=== PATIENT | female | born 2000 | race Caucasian/White ===

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

== ENCOUNTER 2023-05-14 09:46 | Emergency (ER) | payer MEDICAID ==
[~2023-05-14] VITALS: Ht 165.1 cm; Wt 81.6 kg
[2023-05-14] MEDS ORDERED: IBUP-1955 PO (11:32)
[2023-05-14 11:45] VITALS: BP 120/71; TEMP 98.2; O2SAT 100
[2023-05-14] MEDS ORDERED: KETOROLAC TROMETHAMINE INJ 30 MG/ML VIAL IM ONE (12:00)
== END 2023-05-14 11:45 | disposition home or self-care (01) ==
LOC: ER 09:46
DX: S83.91XA Sprain of unspecified site of right knee, initial encounter (principal); Z88.8 Allergy status to other drugs, medicaments and biological substances; Z91.018 Allergy to other foods; X58.XXXA Exposure to other specified factors, initial encounter; Y93.89 Activity, other specified; Y92.89 Other specified places as the place of occurrence of the external cause; Y99.8 Other external cause status
CPT/HCPCS: 73564-TC